=== PATIENT | male | born 1960 | race Caucasian/White ===

== ENCOUNTER → 2018-05-18 14:24 | Outpatient (CLI) | payer OTHER, SELFPAY ==
--- NOTE | 2018-05-18 14:37 | CT_ITS ---
STUDY: CT BRAIN WITH AND WITHOUT CONTRAST REASON FOR EXAM: Male, 57 years old. Ultra mental status pain vertex of the head RADIATION DOSAGE (If Supplied By Facility): CTDIvol = ( 44.99 ) mGy, DLP = ( 1682.21 ) mGycm TECHNIQUE: Transaxial CT imaging of the brain was performed pre and post contrast administration. The examination was performed with intravenous administration of 100mL ml of Isovue 300 contrast material. Individualized dose optimization techniques were used for this CT. COMPARISON: None. FINDINGS: Normal soft tissue structures. Normal calvarium. There is a focal area of low attenuation within the right side temporal lobe which may represent chronic encephalomalacia versus arachnoid cyst. There is no visualized focal enhancement. The enhanced vertebral arteries are of small caliber as well as the basilar artery. There is mild cerebral atrophy with widening of the extra-axial spaces and ventricular dilatation. Normal white matter tracts of the cerebral hemispheres. Normal basal ganglia and thalami. Normal brainstem. There is mild cerebellar atrophy. There is no intracranial hemorrhage. There are no findings of an acute ischemic infarction. Normal visualized paranasal sinuses. CT/Brain/Head W/WO Contrast IMPRESSION: Mild atrophy. Chronic encephalomalacia versus benign arachnoid cyst right temporal region. No visualized evidence of abnormal enhancement. Electronically Signed: Nicole Le MD at 17:36 EDT Tel , Service support ,
== END ==
PROVIDERS: Family Provider Internal Medicine; PCP Internal Medicine
DX: R51 Headache (principal)
CPT/HCPCS: 70470; Q9967